=== PATIENT | female | born 1980 | race Caucasian/White ===

== ENCOUNTER 2021-02-01 13:56 | Emergency (ER) | payer BC ==
--- NOTE | 2021-02-01 14:55 | EDM.PDOC ---
ED HPI GENERAL MEDICAL PROBLEM - General Chief Complaint: Respiratory Problem Stated Complaint: COUGH BODY ACHES SORE THROAT Time Seen by Provider: 02/01/21 14:07 Source of Information: Reports: Patient History Limitations: Reports: No Limitations - History of Present Illness INITIAL COMMENTS - FREE TEXT/NARRATIVE: 40-year-old female presents the emergency department with complaints of a 6-day history of subjective fever, chills, cough, sinus congestion, decreased appetite and flareup of her asthma. Patient states she has been quarantining since developing symptoms 6 days ago. She is with her daughter who has had similar symptoms for 5 days longer. Patient and her daughter were tested at the [facility] 3 days ago and was negative. Patient is refusing to be tested today. She states she has not had any nausea or vomiting or diarrhea. As stated above, she does carry a history of asthma. She does have an albuterol inhaler at home which she has been using and does seem to help with her shortness of breath and cough. - Related Data Allergies Allergy/AdvReac Type Severity Reaction Status Date / Time No Known Allergies Allergy Verified 02/01/21 14:38 Home Meds: Home Meds Albuterol Sulfate [Proair Digihaler] 90 mcg IH ASDIRECTED 02/01/21 [History] Amoxicillin 1,000 mg PO TID 02/01/21 [History] Fluconazole 150 mg PO ASDIRECTED PRN 02/01/21 [History] Past Medical History Respiratory History: Reports: Asthma Gastrointestinal History: Reports: GERD Genitourinary History: Reports: Other (See Below) Other Genitourinary History: chronic vaginal yeast infections [employer] History: Reports: Hematologic History: Reports: Iron Deficiency Social & Family History - Tobacco Use Tobacco Use Status *Q: Never Tobacco User - Recreational Drug Use Recreational Drug Use: No ED ROS GENERAL - Review of Systems Review Of Systems: Comprehensive ROS is negative, except as noted in HPI. ED EXAM, GENERAL - Physical Exam Exam: See Below Exam Limited By: No Limitations General Appearance: Alert, WD/WN, No Apparent Distress Ears: Normal External Exam, Hearing Grossly Normal Nose: Normal Inspection Throat/Mouth: Normal Inspection, Normal Lips, Normal Voice, No Airway Compromise Head: Atraumatic Neck: Normal Inspection, Supple Respiratory/Chest: No Respiratory Distress, Lungs Clear, Normal Breath Sounds, No Accessory Muscle Use, Chest Non-Tender Cardiovascular: Normal Peripheral Pulses, Regular Rate, Rhythm, No Edema, No Murmur GI/Abdominal: Normal Bowel Sounds, Soft, Non-Tender, No Distention (Female) Exam: Deferred Rectal (Female) Exam: Deferred Back Exam: Normal Inspection Extremities: Normal Inspection Neurological: Alert, Oriented, Normal Cognition Psychiatric: Normal Affect, Normal Mood Skin Exam: Warm, Dry, Intact, Normal Color, No Rash Lymphatic: No Adenopathy Course - Vital Signs Text/Narrative:: As stated above, patient presents with a 6-day history of Covid-like symptoms. Refusing to be swabbed for Covid today. Upon exam, assessment is essentially unremarkable. Lungs are clear. However, will obtain a portable chest x-ray to rule out pneumonia. She is also hemodynamically stable and O2 saturations were 100% on room air. Last Recorded V/S: Last Vital Signs Temp 98.5 F 02/01/21 14:30 Pulse 85 02/01/21 14:30 Resp 16 02/01/21 14:30 BP 136/107 H 02/01/21 14:30 Pulse Ox 100 02/01/21 14:30 - Orders/Labs/Meds Orders: Active Orders 24 hr Category Date Time Status Chest 1V Frontal [CR] Stat Exams 02/01/21 14:34 Taken - Re-Assessments/Exams Free Text/Narrative Re-Assessment/Exam: 02/01/21 15:31 Chest x-ray was reviewed by myself and Dr. Jerome and nothing acute is appreciated. Formal radiologist report is pending. Results were reviewed with the patient and she will continue to quarantine until her 10 days have been completed. Patient is agreeable to this. Departure - Departure Time of Disposition: 15:32 Disposition: Home, Self-Care 01 Clinical Impression: Viral infection - Discharge Information Instructions: Viral Illness, Adult Referrals: Ailyn Stringer NP [Primary Care Provider] - Forms: ED Department Discharge Additional Instructions: You were seen in the emergency department today with Covid type symptoms however, Covid swab taken 3 days ago was negative. Would recommend that you continue to quarantine for total of 10 days from the onset of symptoms. Chest x-ray was completed while in the emergency department today and this was unremarkable. There are no signs of infection noted on chest x-ray. Recommend that you go home and rest, drink plenty of fluids and take Tylenol or ibuprofen as needed for fever or discomfort. Continue to use albuterol inhaler as needed for shortness of breath. Should your condition worsen or change, do not hesitate returning to the emergency department. Sepsis Event Note (ED) - Evaluation Sepsis Screening Result: No Definite Risk - Focused Exam Vital Signs: Vital Signs Temp Pulse Resp BP Pulse Ox 02/01/21 14:30 98.5 F 85 16 136/107 H 100 - My Orders Last 24 Hours: My Active Orders 02/01/21 14:34 Chest 1V Frontal [CR] Stat - Assessment/Plan Last 24 Hours: My Active Orders 02/01/21 14:34 Chest 1V Frontal [CR] Stat
--- NOTE | 2021-02-02 06:50 | CR ---
Chest: Portable view of the chest was obtained. Comparison: Prior chest x-ray of 01/31/21. Heart size and mediastinum are normal. Lungs are clear with no acute parenchymal change. Bony structures show nothing acute. Impression: 1. Nothing acute is seen on portable chest x-ray. 2. No change from previous study is seen. Diagnostic code #1
== END 2021-02-01 15:47 | disposition home or self-care (01) ==
LOC: JD.ED 13:56
DX: B34.9 Viral infection, unspecified (principal); J45.909 Unspecified asthma, uncomplicated
CPT/HCPCS: 71045; 71045-26; 99283-25